=== PATIENT | female | born 1965 | race Caucasian/White ===

== ENCOUNTER → 2016-10-27 | Outpatient (CLI) | payer OTHER | LOC: BMCIMAGING 13:51 | DX: Z12.31 Encounter for screening mammogram for malignant neoplasm of breast (principal) | CPT/HCPCS: G0202 ==

== ENCOUNTER → 2016-11-04 | Outpatient (CLI) | payer OTHER | LOC: BMCIMAGING 13:12 | DX: N63 Unspecified lump in breast (principal) | CPT/HCPCS: G0206 ==

== ENCOUNTER → 2017-11-08 | Outpatient (CLI) | payer OTHER | LOC: BMCIMAGING 14:16 | PROVIDERS: ATTEND Internal Medicine | DX: Z12.31 Encounter for screening mammogram for malignant neoplasm of breast (principal); Z13.820 Encounter for screening for osteoporosis; Z78.0 Asymptomatic menopausal state ==

== ENCOUNTER 2017-11-12 19:53 | Emergency (ER) | payer OTHER ==
[2017-11-12 20:00] VITALS: RESP 16; O2SAT 97
--- NOTE | 2017-11-12 20:06 | EDPHY ---
H & P Stated Complaint: Mech fall, fell down stairs, L ankle and R Leg pain. -LOC Time Seen by Provider: 11/12/17 20:00 HPI/ROS: Chief complaint: Fall with leg injuries History of present illness: This is a 52-year-old female who presents to the emergency department after sustaining a fall and injuring her legs. She slipped on stairs falling 2 stairs. She struck her left ankle and right thigh. Since then she has had pain in this regions. It is making it difficult to ambulate. No report of open wounds. No abnormal coolness or paresthesias in the leg. No other trauma reported. - Personal History Current Tetanus/Diphtheria Vaccine: Yes Current Tetanus Diphtheria and Acellular Pertussis (TDAP): Yes - Medical/Surgical History Hx Asthma: No Hx Chronic Respiratory Disease: No Hx Diabetes: No Hx Cardiac Disease: No Hx Renal Disease: No Hx Cirrhosis: No Hx Alcoholism: No Hx HIV/AIDS: No Hx Splenectomy or Spleen Trauma: No Other PMH: Denies. - Social History Smoking Status: Never smoked - Physical Exam Exam: General: Alert, nontoxic Skin: No open wounds. Musculoskeletal: Edema and tenderness to the lateral malleolus of the left ankle and the lateral aspect of the right mid thigh. She is still moving all joints in all scott in the lower extremities. However it causes pain and she is having difficulty ambulating. Vascular: DP and PT pulses 2+ bilaterally. Capillary refill brisk in all digits of both feet. Neurologic: Sensation intact throughout the lower extremities bilaterally. Constitutional: Initial Vital Signs Temperature (C) 36.7 C 11/12/17 19:55 Heart Rate 107 H 11/12/17 19:55 Respiratory Rate 16 11/12/17 19:55 Blood Pressure 150/88 H 11/12/17 19:55 O2 Sat (%) 97 11/12/17 19:55 O2 Delivery Mode Room Air Allergies/Adverse Reactions: No Known Allergies Allergy (Unverified 11/12/17 20:01) Home Medications: Medication Instructions Recorded NK [No Known Home Meds] 11/12/17 Medical Decision Making - Diagnostics Imaging Results: Imaging Impressions Ankle X-Ray 11/12/17 20:12 Impression: Soft tissue injury. No acute fracture. Femur X-Ray 11/12/17 20:12 Impression: Negative. No acute fracture. Imaging: I viewed and interpreted images myself ED Course/Re-evaluation: Patient seen under the supervision of my secondary supervising physician Dr. Luis Carlos Helm. Patient presents to the emergency department after a mechanical fall injuring her left ankle and right thigh. X-rays are negative. The legs are neurovascularly intact. Likely soft tissue injury. She is requesting a walking boot to the left ankle and is given crutches. She is ambulating well. She is to follow up with her primary care doctor next week. Home care is discussed. Return precautions are given. Differential Diagnosis: Included but not limited to contusion, sprain or strain, bony fracture, joint dislocation - Data Points Medications Given: Discontinued Medications Ibuprofen (Motrin) 600 mg PO EDNOW ONE Stop: 11/12/17 20:21 Last Admin: 11/12/17 20:26 Dose: 600 mg Departure - Departure Disposition: Home, Routine, Self-Care Clinical Impression: Ankle sprain Qualifiers: Encounter type: initial encounter Involved ligament of ankle: unspecified ligament Laterality: left Qualified Code(s): S93.402A - Sprain of unspecified ligament of left ankle, initial encounter Contusion, hip Qualifiers: Encounter type: initial encounter Laterality: right Qualified Code(s): S70.01XA - Contusion of right hip, initial encounter Condition: Good Instructions: Ankle Sprain (ED), Contusion in Adults (ED) Additional Instructions: Follow-up with your primary care doctor next week for recheck Use ibuprofen 600 mg 3 times a day for the next 2-3 days for pain control Ice the injury, 20 min on, 3 times daily for the next 3 days If symptoms worsen or new symptoms develop return to the emergency room for recheck Referrals: Gladis Downey MD [Primary Care Provider] - As per Instructions
[2017-11-12] MEDS ORDERED: IBUPROFEN 600 MG TAB PO ONE (20:20)
[2017-11-12 21:34] VITALS: BP 153/89; PULSE 99; TEMP 98.2
== END 2017-11-12 21:31 | disposition home or self-care (01) ==
DX: S70.01XA Contusion of right hip, initial encounter (principal); S93.402A Sprain of unspecified ligament of left ankle, initial encounter; W10.9XXA Fall (on) (from) unspecified stairs and steps, initial encounter
CPT/HCPCS: L4386

== ENCOUNTER → 2018-12-12 | Outpatient (CLI) | payer OTHER | LOC: BMCIMAGING 13:15 | PROVIDERS: ATTEND Internal Medicine | DX: Z12.31 Encounter for screening mammogram for malignant neoplasm of breast (principal) ==